=== PATIENT | female | born 1945 | race Caucasian/White ===

== ENCOUNTER 2020-11-12 12:41 | Emergency (ER) | payer MEDICARE, BC ==
[~2020-11-12] VITALS: Ht 175.3 cm; Wt 99.8 kg
[~2020-11-12 12:41] MED LIST: CARVEDILOL12.5 MG PO; LEVOTHYROXINE 0.1 MG PO; LISINOPRIL2.5 MG PO; PLAVIX 75 MG TA75 M1 PO; PRILOSEC40 MG PO; TOPROL XL25 MG PO; ULTRAM 50MG TAB50 MG PO; ZYRTEC10 MG PO
[2020-11-12] MEDS ORDERED: LIPITOR10 MG PO (12:54)
[2020-11-12 14:43] LABS: ABSOLUTE BASOPHILS 0.1 thou/uL (0.0-0.2); ABSOLUTE EOSINOPHILS 0.2 thou/uL (0.0-0.7); ABSOLUTE LYMPHOCYTES 1.4 thou/uL (0.8-5.3); ABSOLUTE MONOCYTES 0.6 thou/uL (0.0-1.2); ABSOLUTE NEUTROPHILS 6.3 thou/uL (1.6-8.1); EOSINOPHILS 2.7 %; HEMATOCRIT 36.5 % (37.0-47.0); HEMOGLOBIN 12.3 gm/dL (12.0-15.0); LYMPHOCYTES 16.5 %; MCH 31.3 pg (26.0-34.0); MCHC 33.8 g/dL (28.0-37.0); MCV 92.7 fL (80.0-100.0); MONOCYTES 6.9 %; MPV 8.1 fl. (7.2-11.1); NUCLEATED RBCS 0 /100WBC; PLATELET COUNT* 319 thou/uL (150-400); POLYS 72.9 %; RBC 3.94 mil/uL (4.20-5.00); RDW-CV 13.1 % (10.5-14.5); WBC 8.7 thou/uL (4.0-11.0)
[2020-11-12 14:49] LABS: CALCIUM 9.4 mg/dL (8.5-10.1); CREATININE 1.5 mg/dL (0.6-1.3); POTASSIUM 4.7 mmol/L (3.5-5.1)
[2020-11-12 14:54] LABS: ALBUMIN 4.1 g/dL (3.4-5.0); TOTAL BILIRUBIN 0.5 mg/dL (<0.1-1.0); TOTAL PROTEIN 7.8 g/dL (6.4-8.2)
[2020-11-12] MEDS ORDERED: HYDROCODON-ACE1 EAC7 PO (16:14)
--- NOTE | 2020-11-12 16:34 | EKG ---
[place] [address] ELECTROCARDIOGRAM REPORT Name: SHANNON AVELAR Room: [facility]#: [id number] Admission: 11/12/20 Attend Phys: Discharge: Date of : 43 Date of Service: 11/12/20 1250 Report #: [id number] THIS REPORT FOR: //name// [facility] ED Test Date: 2020-11-12 Test Time: 12:50:35 Pat Name: SHANNON AVELAR Department: Room: Gender: F G[employer] Operator: [facility] : 1945 Requested By: [place] Order Number: [id number] Reading MD: Derrick Krishna Measurements Intervals Buhler Rate: 83 P: 44 MT: 188 QRS: -18 QRSD: 99 T: 26 QT: 383 QTc: 450 Interpretive Statements Sinus rhythm Borderline left axis deviation Abnormal R-wave progression, early transition Compared to ECG 01/20/2014 10:46:26 T-wave abnormality no longer present Electronically Signed On 11-12-2020 16:34:45 CDT by Derrick Krishna [email or web address] <ELECTRONICALLY SIGNED> By: Derrick Krishna MD, [facility] 11/12/20 1634 1250 1250 Derrick Krishna MD, [facility] /EPI
[2020-11-12 16:54] VITALS: BP 160/78
== END 2020-11-12 16:56 | disposition home or self-care (01) ==
LOC: M.ERS 12:41
PROVIDERS: Emergency Medicine Emergency Medical Services
DX: S22.41XA Multiple fractures of ribs, right side, initial encounter for closed fracture (principal); I12.9 Hypertensive chronic kidney disease with stage 1 through stage 4 chronic kidney disease, or unspecified chronic kidney disease; N18.9 Chronic kidney disease, unspecified; Z87.891 Personal history of nicotine dependence; Z88.6 Allergy status to analgesic agent; Z79.899 Other long term (current) drug therapy; W18.30XA Fall on same level, unspecified, initial encounter; Y93.89 Activity, other specified; Y92.89 Other specified places as the place of occurrence of the external cause; Y99.9 Unspecified external cause status